=== PATIENT | male | born 1990 | race Caucasian/White ===

== ENCOUNTER → 2021-06-19 10:38 | Outpatient (CLI) | payer OTHER, SELFPAY ==
[2021-06-19 12:26] LABS: Cholesterol 182 mg/dL (200); Glucose 102 mg/dL (74-106); High Density Lipoprotein 28 mg/dL; Triglycerides 272 mg/dL; Very Low Density Lipoprotein 54 mg/dL (5-40)
== END ==
PROVIDERS: PCP Family Medicine; Visit Provider Family Medicine
DX: Z13.6 Encounter for screening for cardiovascular disorders (principal); Z13.1 Encounter for screening for diabetes mellitus
CPT/HCPCS: 80061; 82947